=== PATIENT | female | born 1940 | race African-American/Black ===

== ENCOUNTER → 2017-02-02 | Outpatient (CLI) | payer MEDICARE, BC, OTHER ==
[2017-02-02 12:30] LABS: AUTOMATED NEUTROPHIL # 2.5 TH/MM3 (1.8-7.7); BASOPHIL % 0.3 % (0.0-2.0); EOSINOPHIL # 0.1 TH/MM3 (0-0.4); EOSINOPHIL % 1.3 % (0.0-4.0); HEMATOCRIT 37.5 % (35.0-46.0); HEMO FLAGS DIFF FINAL; LYMPH % 48.5 % (9.0-44.0); LYMPHOCYTE # 2.9 TH/MM3 (1.0-4.8); MEAN CELL VOLUME 82.3 FL (80.0-100.0); MEAN CORPUSCULAR HEMOGLOBIN 26.6 PG (27.0-34.0); MEAN CORPUSCULAR HGB CONC 32.4 % (32.0-36.0); MONO % 8.1 % (0.0-8.0); NEUT % 41.8 % (16.0-70.0); PLATELET COUNT 259 TH/MM3 (150-450); RED BLOOD COUNT 4.55 MIL/MM3 (4.00-5.30); RED CELL DISTRIBUTION WIDTH 15.2 % (11.6-17.2)
[2017-02-02 12:56] LABS: ANION GAP 8 MEQ/L (5-15); AST (GOT) 22 U/L (15-37); BICARBONATE 29.8 MEQ/L (21.0-32.0); BLOOD UREA NITROGEN 17 MG/DL (7-18); CHLORIDE 99 MEQ/L (98-107); GLOMERULAR FILTRATION RATE 76 ML/MIN (>89); GLUCOSE,FASTING 215 MG/DL (74-99); POTASSIUM 3.7 MEQ/L (3.5-5.1); SODIUM (NA) 137 MEQ/L (136-145)
[2017-02-02 12:59] LABS: ALKALINE PHOSPHATASE 83 U/L (45-117); ALT (GPT) 35 U/L (10-53); HDL CHOLESTEROL 63.1 MG/DL (40.0-60.0); LDL CHOLESTEROL 116 MG/DL (0-99); TOTAL BILIRUBIN ADULT 0.3 MG/DL (0.2-1.0)
[2017-02-02 21:55] LABS: HEMOGLOBIN A1a 7.1 %; HEMOGLOBIN A1b 1.5 %; HEMOGLOBIN Ao 54.7 %; HEMOGLOBIN LA1C 2.4 %; HEMOGLOBIN P3 3.3 %
== END ==
LOC: ELAB 09:42
PROVIDERS: ATTEND Family Medicine
DX: E11.9 Type 2 diabetes mellitus without complications (principal)
CPT/HCPCS: 36415; 80053; 80061; 83036; 85025